=== PATIENT | male | born 1990 | race Caucasian/White ===

== ENCOUNTER 2024-03-19 18:20 | Emergency (ER) | payer BC, SELFPAY ==
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
[2024-03-19 18:30] VITALS: BP 173/107; PULSE 72; RESP 18; TEMP 36.8; O2SAT 100
[2024-03-19 18:32] VITALS: BP 173/107; PULSE 72; RESP 18; TEMP 36.8; O2SAT 100
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
== END 2024-03-19 19:15 | disposition home or self-care (01) ==
PROVIDERS: Emergency Provider Registered Nurse; PCP Family Medicine
DX: S90.02XA Contusion of left ankle, initial encounter (principal); V86.06XA Driver of dirt bike or motor/cross bike injured in traffic accident, initial encounter
CPT/HCPCS: 73610; 99203; G0463